=== PATIENT | female | born 1980 | race Caucasian/White ===

== ENCOUNTER 2019-03-10 21:56 | Emergency (ER) | payer OTHER ==
[2019-03-10 22:04] VITALS: TEMP 98.7; BMI 19.3
[2019-03-10] MEDS ORDERED: ACETAMINOPHEN 1000 MG/100 ML VIAL (NON FORMULARY) IVPB ONE (23:22)
--- NOTE | 2019-03-10 23:26 | PDOC ---
Attending Attestation - Resident Resident Name: Elizabeth Mcdonaldana - ED Attending Attestation I have performed the following: I have examined & evaluated the patient, The case was reviewed & discussed with the resident, I agree w/resident's findings & plan - HPI HPI: 03/10/19 23:26 see resident hpi - Physicial Exam PE: 03/11/19 00:20 agree with resident exam - Medical Decision Making 03/11/19 00:21 38-year-old female with left flank pain, currently approximately 7 weeks gestational age Patient provides history of vomiting likely leading to muscle spasm/strain Plan for IV hydration, antiemetics Urinalysis consistent with urinary tract infection, plan for DC on Macrobid
[2019-03-10] MEDS ORDERED: ACETAMINOPHEN INJECTION 100 ML IVPB ONE (23:39)
[2019-03-10 23:54] LABS: BASO % 1.1 % (0-2.0); EOS % 1.6 % (0-4.5); HEMATOCRIT 33.7 % (32.4-45.2); HEMOGLOBIN 10.8 GM/dL (10.7-15.3); LYMPH % 24.3 % (8-40); MCH 25.8 pg (25.7-33.7); MCHC 31.9 g/dl (32.0-36.0); MEAN CELL VOLUME 80.8 fl (80-96); MEAN PLT VOLUME 9.1 fl (7.5-11.1); MONO % 6.4 % (3.8-10.2); NEUT % 66.6 % (42.8-82.8); PLATELET COUNT 286 K/MM3 (134-434); RBC 4.17 M/mm3 (3.60-5.2); RDW 15.7 % (11.6-15.6)
[2019-03-10] MEDS ORDERED: SODIUM CHLORIDE 1,000 ML IV STA (23:58)
--- NOTE | 2019-03-10 23:59 | PDOC ---
History of Present Illness - General Chief Complaint: Pain Stated Complaint: FEELING PAIN Time Seen by Provider: 03/10/19 23:18 History Source: Patient Exam Limitations: No Limitations - History of Present Illness Initial Comments: Pt is a 38 yo F, (1 , 1 miscarriage), @7 weeks , who is presenting with complaints of L-sided back pain since 8am this morning. Pt states she has been vomiting every day since being , and had forceful wretching this morning, followed by "a pulling sensation through her back". Pt did not take any analgesics at home. Pt denies any recent fevers/chills, headache, vision changes, syncope, chest pain, palpitations, SOB, nausea/ vomiting, abdominal pain, vaginal bleeding or discharge, urinary symptoms, diarrhea/constipation, or leg swelling. Allergies: NKDA PCP: None OB: None Social: Pt denies any cigarette, alcohol, or drug use. Pt denies any recent travel or sick contacts. Surgical: no relevant history. Family: no relevant history. No known kidney stones or renal issues. 03/11/19 00:51 Past History - Travel Traveled outside of the country in the last 30 days: No Close contact w/someone who was outside of country & ill: No - Past Medical History Allergies/Adverse Reactions: Allergies Allergy/AdvReac Type Severity Reaction Status Date / Time No Known Allergies Allergy Verified 03/10/19 22:01 Home Medications: Ambulatory Orders Nitrofurantoin Monohyd/M-Cryst [Macrobid -] 100 mg PO BID #14 capsule 03/11/19 Ondansetron [Zofran *Odt*] 4 mg SL BID PRN #10 od.tablet 03/11/19 COPD: No - Immunization History Immunization Up to Date: Yes - Psycho Social/Smoking Cessation Hx Smoking History: Never smoked Hx Alcohol Use: No Drug/Substance Use Hx: No Review of Systems - Review of Systems Able to Perform ROS?: Yes Is the patient limited Persian proficient: No Constitutional: Yes: Weight Stable. No: Chills, Diaphoresis, Fever, Loss of Appetite, Malaise, Weakness HEENTM: No: Recent change in vision, Nose Congestion, Throat Pain, Throat Swelling, Difficulty Swallowing Respiratory: No: Cough, Orthopnea, Shortness of Breath Cardiac (ROS): No: Chest Pain, Edema, Irregular Heart Rate, Lightheadedness, Palpitations, Syncope, Chest Tightness ABD/GI: Yes: Nausea, Vomiting. No: Abdominal Distended, Constipated, Diarrhea, Poor Appetite, Poor Fluid Intake, Abdominal cramping : No: Burning, Dysuria, Frequency, Flank Pain, Hematuria, Pain, Urgency Musculoskeletal: Yes: See HPI, Back Pain. No: Joint Pain, Muscle Pain, Muscle Weakness Integumentary: No: Bruising, Rash Neurological: No: Headache, Weakness, Unsteady Gait, Dizziness Psychiatric: No: Sleep Pattern Change, Change in Appetite Endocrine: No: Increased Urine, Change in Weight Hematologic/Lymphatic: No: Anemia, Blood Clots, Easy Bleeding, Easy Bruising All Other Systems: Reviewed and Negative *Physical Exam - Vital Signs Last Vital Signs Temp Pulse Resp BP Pulse Ox 98.7 F 109 H 18 128/80 99 03/10/19 22:01 03/10/19 22:01 03/10/19 22:01 03/10/19 22:01 03/10/19 22:01 - Physical Exam Comments: Vitals stable, mild tachycardia (HR 100s). Pt in NAD, thin body habitus. Pt alert and oriented x3. 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 No midline spinal tenderness, step-offs, or crepitus. +Reproducible paraspinal TTP over L lower back with mild spasm palpable. Head normocephalic, atraumatic. Eyes PERRLA, EOMI. Oropharynx without erythema or exudates, no LAD b/l. No nasal congestion. Hearing intact. Clear heart sounds, S1/S2, no JVD, b/l pedal edema, or heart murmur. Clear lung sounds, no respiratory distress, wheezes, crackles, or accessory muscle use. No abdominal or CVA tenderness to palpation, no rebound, no guarding. Abdomen soft, non-distended, and with normoactive bowel sounds. Fundal height appropriate for gestational age. Skin without jaundice or rash. 03/11/19 00:53 03/11/19 01:13 ED Treatment Course - LABORATORY CBC & Chemistry Diagram: 03/10/19 23:50 03/10/19 23:50 - ADDITIONAL ORDERS Additional order review: 03/10/19 23:50 RBC 4.17 MCV 80.8 MCHC 31.9 L RDW 15.7 H MPV 9.1 Neutrophils % 66.6 Lymphocytes % 24.3 Monocytes % 6.4 Eosinophils % 1.6 Basophils % 1.1 Medical Decision Making - Medical Decision Making 38 yo F with low back pain likely 2/2 muscular low back strain after vomiting. Will evaluate for TABATHA vs UTI vs electrolyte imbalances. CBC WNL UA with UTI -- providing first dose of macrobid Providing 4 mg SL zofran for nausea, ofirmev, and 1 L IV NS Will send additional zofran and macrobid to pharmacy Pending CMP 03/11/19 01:23 CMP WNL, GFR and Cr WNL Bedside renal US showed no hydro; good heart rate and movement Pt states nausea and pain improved. Pt safe for d/c to home with OB and PCP f/u. Strict return precautions provided with pt understanding. 03/11/19 01:34 Discharge - Discharge Information Problems reviewed: Yes Clinical Impression/Diagnosis: Low back pain Qualifiers: Chronicity: acute Back pain laterality: left Sciatica presence: without sciatica Qualified Code(s): M54.5 - Low back pain Condition: Good Disposition: HOME - Admission No - Additional Discharge Information Prescriptions: Nitrofurantoin Monohyd/M-Cryst [Macrobid -] 100 mg PO BID #14 capsule Ondansetron [Zofran *Odt*] 4 mg SL BID PRN #10 od.tablet PRN Reason: Nausea - Follow up/Referral Referrals: [facility] [place] [Provider Group] Desirae Marino MD [Staff Physician] - Prateek Gómez MD [Staff Physician] - - Patient Discharge Instructions Patient Printed Discharge Instructions: DI for Low Back Pain Additional Instructions: You were seen in the ER today for low back pain. The results of your labs and imaging today showed a urine infection. Please follow-up with your primary care doctor and OB within 1-2 days to discuss your visit and make sure your symptoms have improved. Please return to the ER if you have any worsening pain, development of fevers or chills, loss of consciousness, inability to tolerate food or fluids, or any other concerns. I have sent medications to your pharmacy. Please take these medications as prescribed. You can take tylenol every 6 hours as needed for pain. - Post Discharge Activity
[2019-03-11 00:14] LABS: EPI CELLS 19.1 /HPF (0-5/HPF); HYALINE CASTS 28 /lpf (0-8); URINE APPEARANCE TURBID; URINE BACTERIA 4736.3 /hpf (NEGATIVE); URINE BILIRUBIN NEGATIVE (NEGATIVE); URINE COLOR YELLOW; URINE GLUCOSE (UA) NEGATIVE (NEGATIVE); URINE KETONE TRACE (NEGATIVE); URINE LEUK ESTERASE 1+ (NEGATIVE); URINE NITRITE NEGATIVE (NEGATIVE); URINE PROTEIN TRACE (NEGATIVE); URINE RBC 10 /hpf (0-4); URINE WBC 43 /hpf (0-5)
[2019-03-11] MEDS ORDERED: ONDANSETRON *ODT* 4 MG TABLET SL ONE (00:14)
[2019-03-11] MEDS ORDERED: NITROFURANTOIN MACROCRYSTAL 50 MG CAPSULE (FP) PO SCH (00:15)
[2019-03-11] MEDS ORDERED: ONDANSETRON *ODT* 4 MG TABLET ONE (00:30)
[2019-03-11] MEDS ORDERED: NITROFURANTOIN MACROCRYSTAL 50 MG CAPSULE (FP) ONE (00:30)
[2019-03-11 01:11] LABS: ALK PHOS 73 U/L (45-117); ANION GAP 7 MMOL/L (8-16); BILIRUBIN,TOTAL < 0.1 mg/dL (0.2-1); BLOOD UREA NITROGEN 11.4 mg/dL (7-18); CALCIUM 8.3 mg/dL (8.5-10.1); CHLORIDE 108 mmol/L (98-107); CO2 24 mmol/L (21-32); CREATININE 0.7 mg/dL (0.55-1.3); GLUCOSE,RANDOM 105 mg/dL (74-106); POTASSIUM 3.9 mmol/L (3.5-5.1); SGOT/AST 16 U/L (15-37); SGPT/ALT 13 U/L (13-61); SODIUM 139 mmol/L (136-145); TOT PROT 6.8 g/dl (6.4-8.2)
[2019-03-11 03:24] VITALS: BP 133/85; PULSE 94
== END 2019-03-11 02:20 | disposition home or self-care (01) ==
LOC: JER 21:56
PROC: 3E033NZ Introduction of Analgesics, Hypnotics, Sedatives into Peripheral Vein, Percutaneous Approach (ICD-10-PCS; principal; 2019-03-10)
DX: O26.891 Other specified pregnancy related conditions, first trimester (principal); O23.41 Unspecified infection of urinary tract in pregnancy, first trimester; Z3A.01 Less than 8 weeks gestation of pregnancy
CPT/HCPCS: 36415; 80053; 81003; 84702; 85025; 87086; 96374; 99283-25; J0131; J7030; Q0162

== ENCOUNTER 2019-03-31 18:41 | Emergency (ER) | payer OTHER ==
[2019-03-31 18:47] VITALS: TEMP 98; BMI 19.3
[2019-03-31 20:28] LABS: EPI CELLS >36 /HPF (0-5/HPF); HYALINE CASTS 91 /lpf (0-8); URINE APPEARANCE TURBID; URINE BACTERIA 7774.6 /hpf (NEGATIVE); URINE BILIRUBIN NEGATIVE (NEGATIVE); URINE COLOR YELLOW; URINE GLUCOSE (UA) NEGATIVE (NEGATIVE); URINE KETONE TRACE (NEGATIVE); URINE LEUK ESTERASE 1+ (NEGATIVE); URINE NITRITE NEGATIVE (NEGATIVE); URINE PROTEIN TRACE (NEGATIVE); URINE UROBILINOGEN 0.2 mg/dL (0.2-1.0); URINE WBC 93 /hpf (0-5)
[2019-03-31] MEDS ORDERED: ONDANSETRON *ODT* 4 MG TABLET SL ONE (20:46)
[2019-03-31] MEDS ORDERED: ACETAMINOPHEN 325 MG TABLET (FP) PO ONE (20:46)
--- NOTE | 2019-03-31 20:46 | PDOC ---
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 Pt reported she was seen at [facility] ED recently for the same thing, was given a "pain medicine" and "medicine for nausea" which improved her symptoms. She reported she ran out of the nausea medicine x2 days ago. She denied fever, abdominal pain, pelvic pain, pelvic cramping, vaginal bleeding, vaginal discharge, diarrhea, blood in stool/vomit. Pt reported she is unwilling to have a pelvic examination as "I just had a papsmear done 15 days ago and I do not need to do it again." OBGYN - Aimee ROS General: denied fever, chills, generalized weakness. HEENT: denied sore throat, rhinorrhea, ear pain. Cardiovascular: denied chest pain, palpitations, syncope, diaphoresis. Respiratory: denied shortness of breath, cough, sputum production, hemoptysis. Gastrointestinal: admitted to nausea, vomiting. denied abdominal pain, diarrhea , constipation, blood in stool. Genitourinary: denied dysuria, increased urinary frequency, hematuria, urinary incontinence, flank pain. Back: admitted to back pain. Musculoskeletal: denied joint pain, muscle pain, joint swelling. Neurological: denied headache, dizziness, numbness, tingling, weakness. Integumentary: denied rash, laceration, abrasion. Hematologic/Lymphatic: denied bruising or bleeding. PE Constitutional: Well-nourished, Well-developed, appearing stated age. HEENT: head is normocephalic, atraumatic. EOMI. PERRLA. Neck: supple. Full ROM. Cardiovascular: regular heart rhythm. no murmurs. no pericardial friction rub. Respiratory: clear to auscultation bilaterally. no crackles, rhonchi or wheezing. no stridor. Gastrointestinal: soft, nontender. normal bowel sounds. no rebound, guarding, masses. Back: self reported left sided CVA tenderness. no right sided CVA tenderness. Extremities: peripheral pulses intact. no lower extremity edema. Neurological: CN 2-12 grossly intact. moves all four extremities. Psych: awake, alert, oriented x3. follows commands. answers questions appropriately. Pelvic: pt refused. Past History - Past Medical History Allergies/Adverse Reactions: Allergies Allergy/AdvReac Type Severity Reaction Status Date / Time No Known Allergies Allergy Verified 03/31/19 18:47 Home Medications: Ambulatory Orders Nitrofurantoin Monohyd/M-Cryst [Macrobid -] 100 mg PO BID #14 capsule 03/11/19 Ondansetron [Zofran *Odt*] 4 mg SL BID PRN #10 od.tablet 03/11/19 Cephalexin Monohydrate [Keflex -] 500 mg PO TID #21 capsule 03/31/19 Ondansetron [Zofran Odt -] 4 mg SL TID #12 od.tablet 03/31/19 - Immunization History Immunization Up to Date: Yes - Psycho Social/Smoking Cessation Hx Smoking History: Never smoked Hx Alcohol Use: No Drug/Substance Use Hx: No *Physical Exam - Vital Signs Last Vital Signs Temp Pulse Resp BP Pulse Ox 98 F 113 H 18 111/69 99 03/31/19 18:44 03/31/19 18:44 03/31/19 18:44 03/31/19 18:44 03/31/19 18:44 ED Treatment Course - LABORATORY CBC & Chemistry Diagram: 03/31/19 21:11 03/31/19 21:11 - ADDITIONAL ORDERS Additional order review: Laboratory Results 03/31/19 20:17 Urine Color Yellow Urine Appearance Turbid Urine pH 6.0 Ur Specific [place] 1.026 Urine Protein Trace Urine Glucose (UA) Negative Urine Ketones Trace H Urine Blood 1+ H Urine Nitrite Negative Urine Bilirubin Negative Urine Urobilinogen 0.2 Ur Leukocyte Esterase 1+ H Urine WBC (Auto) 93 Urine Casts (Auto) 91 U Epithel Cells (Auto) >36 Urine Bacteria (Auto) 7774.6 Medical Decision Making - Medical Decision Making 38 year old female with above PMH presented to ED for left sided back pain associated with n/v x1.5 days. Pt was seen at [facility] ED 03/18/19 for similar symptoms, was diagnosed with UTI and prescribed macrobid/zofran and discharged. Initial Vital Signs Temp Pulse Resp BP Pulse Ox 98 F 113 H 18 111/69 99 03/31/19 18:44 03/31/19 18:44 03/31/19 18:44 03/31/19 18:44 03/31/19 18:44 Afebrile. Tachycardic. No tachypnea. No hypotension. No hypoxia on room air. Labs ordered: CBC, CMP, Mag, UA/UC, serum beta quant Imaging ordered: Pelvic US, bilateral renal US Medications ordered: tylenol IV, zofran 4 mg IV once, normal saline bolus 1000 cc once Bedside POCUS of pelvis showed intrauterine with movement, FHR 164, BPD 12 weeks 4 days. Bedside POCUS of bilateral kidneys showed no hydronephrosis, no cysts. 03/31/19 20:56 Urine Test Results Urine Color Yellow 03/31/19 20:17 Urine Appearance Turbid 03/31/19 20:17 Urine pH 6.0 (5.0-8.0) 03/31/19 20:17 Ur Specific [place] 1.026 (1.010-1.035) 03/31/19 20:17 Urine Protein Trace (NEGATIVE) 03/31/19 20:17 Urine Glucose (UA) Negative (NEGATIVE) 03/31/19 20:17 Urine Ketones Trace (NEGATIVE) H 03/31/19 20:17 Urine Blood 1+ (NEGATIVE) H 03/31/19 20:17 Urine Nitrite Negative (NEGATIVE) 03/31/19 20:17 Urine Bilirubin Negative (NEGATIVE) 03/31/19 20:17 Ur Leukocyte Esterase 1+ (NEGATIVE) H 03/31/19 20:17 Positive for UTI. Pt is failing outpt Macrobid treatment. 03/31/19 21:33 CBC WBC 9.1 K/mm3 (4.0-10.0) 03/31/19 21:11 RBC 4.34 M/mm3 (3.60-5.2) 03/31/19 21:11 Hgb 11.4 GM/dL (10.7-15.3) 03/31/19 21:11 Hct 35.4 % (32.4-45.2) 03/31/19 21:11 MCV 81.5 fl (80-96) 03/31/19 21:11 MCH 26.2 pg (25.7-33.7) 03/31/19 21:11 MCHC 32.1 g/dl (32.0-36.0) 03/31/19 21:11 RDW 16.8 % (11.6-15.6) H 03/31/19 21:11 Plt Count 292 K/MM3 (134-434) 03/31/19 21:11 MPV 8.9 fl (7.5-11.1) 03/31/19 21:11 Absolute Neuts (auto) 6.0 K/mm3 (1.5-8.0) 03/31/19 21:11 Neutrophils % 65.7 % (42.8-82.8) 03/31/19 21:11 Lymphocytes % 24.9 % (8-40) 03/31/19 21:11 Monocytes % 7.0 % (3.8-10.2) 03/31/19 21:11 Eosinophils % 2.0 % (0-4.5) 03/31/19 21:11 Basophils % 0.4 % (0-2.0) 03/31/19 21:11 Nucleated RBC % 0 % (0-0) 03/31/19 21:11 No leukocytosis. No anemia. 03/31/19 22:21 CMP Sodium 137 mmol/L (136-145) 03/31/19 21:11 Potassium 3.9 mmol/L (3.5-5.1) 03/31/19 21:11 Chloride 104 mmol/L (98-107) 03/31/19 21:11 Carbon Dioxide 24 mmol/L (21-32) 03/31/19 21:11 Anion Gap 8 MMOL/L (8-16) 03/31/19 21:11 BUN 7.8 mg/dL (7-18) 03/31/19 21:11 Creatinine 0.5 mg/dL (0.55-1.3) L 03/31/19 21:11 Est GFR (CKD-EPI)AfAm 141.30 03/31/19 21:11 Est GFR (CKD-EPI)NonAf 121.92 03/31/19 21:11 Random Glucose 72 mg/dL (74-106) L 03/31/19 21:11 Calcium 8.7 mg/dL (8.5-10.1) 03/31/19 21:11 Magnesium 2.1 mg/dL (1.8-2.4) 03/31/19 21:11 Total Bilirubin 0.2 mg/dL (0.2-1) 03/31/19 21:11 AST 10 U/L (15-37) L 03/31/19 21:11 ALT 12 U/L (13-61) L 03/31/19 21:11 Alkaline Phosphatase 71 U/L (45-117) 03/31/19 21:11 Total Protein 7.3 g/dl (6.4-8.2) 03/31/19 21:11 Albumin 3.2 g/dl (3.4-5.0) L 03/31/19 21:11 Lipase 108 U/L (73-393) 03/31/19 21:11 Beta HCG, Quant 630380.8 mIU/ml 03/31/19 21:11 No electrolyte abnormalities. No TABATHA. No transaminitis. Lipase wnl. Pt reported improvement of symptoms with Zofran and 1L normal saline bolus. Pt recieved first dose Keflex in ED. 03/31/19 23:05 Pt tolerated PO challenge. Pt stable for discharge with prescriptions for Keflex and Zofran. Pt advised to call her OBGYN and make an appt as she has not been evaluated during this by her OBGYN. Pt informed UTI is a risk factor for spontaneous , and to take her antibiotic as instructed. Pt expressed understanding and agreed with plan for care. Discharge - Discharge Information Problems reviewed: Yes Clinical Impression/Diagnosis: UTI (urinary tract infection) Condition: Stable Disposition: HOME - Admission No - Additional Discharge Information Prescriptions: Cephalexin Monohydrate [Keflex -] 500 mg PO TID #21 capsule Ondansetron [Zofran Odt -] 4 mg SL TID #12 od.tablet - Follow up/Referral - Patient Discharge Instructions Patient Printed Discharge Instructions: DI for Urinary Tract Infection (UTI), DI for -- Discomforts and Remedies Additional Instructions: Follow up with your OBGYN within 3 days regarding your Emergency Room visit. Your care is not complete until you follow up. You need to follow up as well to establish care for your . Take the antibiotic I sent to your pharmacy as advised on label. Do not stop early even if you are feeling better. Finish all pills. Take with food to avoid nausea. I have sent an anti-nausea medication to your pharmacy, take as advised on label as needed. Return to the Emergency Department for fever, continuous vomiting, abdominal pain, increasing pain, lightheadedness, passing out, chest pain, shortness of breath, or any other new, worsening or concerning symptoms. Michelet un seguimiento con joe OBGYN dentro de los 3 rush con respecto a joe visita a la jc de emergencias. Joe atencin no estar completa hasta que realice el seguimiento. Karen debe realizar un seguimiento para establecer el cuidado de joe embarazo. [place] el antibitico que envi a joe farmacia donan se indica en la etiqueta. No pare temprano, incluso si se siente mejor. Termina todas las pastillas. Lauren con comida para evitar las nuseas. Envi un medicamento contra las nuseas a joe farmacia, tmelo donna se indica en la etiqueta segn sea necesario. Regrese al departamento de emergencias por fiebre, vmitos continuos, dolor abdominal, aumento del dolor, aturdimiento, desmayo, dolor en el pecho, falta de aliento o cualquier otro sntoma nuevo, que empeore o se relacione. - Post Discharge Activity Work/Back to School Note: Back to Work
[2019-03-31] MEDS ORDERED: SODIUM CHLORIDE 1,000 ML IV STA (20:49)
[2019-03-31] MEDS ORDERED: ACETAMINOPHEN INJECTION 100 ML IVPB ONE (20:51)
[2019-03-31] MEDS ORDERED: ACETAMINOPHEN 1000 MG/100 ML VIAL (NON FORMULARY) IVPB ONE (20:51)
[2019-03-31] MEDS ORDERED: ONDANSETRON 4 MG/2 ML VIAL IVPUSH ONE (20:51)
[2019-03-31] MEDS ORDERED: ONDANSETRON 4 MG/2 ML VIAL ONE (20:52)
[2019-03-31 20:58] LABS: URINE RBC 11.5 /hpf (0-4)
[2019-03-31 21:25] LABS: BASO % 0.4 % (0-2.0); HEMATOCRIT 35.4 % (32.4-45.2); HEMOGLOBIN 11.4 GM/dL (10.7-15.3); LYMPH % 24.9 % (8-40); MCH 26.2 pg (25.7-33.7); MCHC 32.1 g/dl (32.0-36.0); MEAN CELL VOLUME 81.5 fl (80-96); MEAN PLT VOLUME 8.9 fl (7.5-11.1); NEUT % 65.7 % (42.8-82.8); PLATELET COUNT 292 K/MM3 (134-434); RBC 4.34 M/mm3 (3.60-5.2); RDW 16.8 % (11.6-15.6); WHITE BLOOD COUNT 9.1 K/mm3 (4.0-10.0)
[2019-03-31] MEDS ORDERED: CEPHALEXIN MONOHYDRATE 500 MG CAPSULE (UD) PO ONE (21:34)
[2019-03-31 21:38] LABS: INR 0.9 (0.83-1.09); PROTHROMBIN TIME (PATIENT) 10.6 SEC (9.7-13.0)
[2019-03-31 21:40] LABS: ACTIVATED PTT 31.6 SECONDS (25.2-36.5)
--- NOTE | 2019-03-31 21:47 | PDOC ---
Attending Attestation - Resident Resident Name: Love Reyes - ED Attending Attestation I have performed the following: I have examined & evaluated the patient, The case was reviewed & discussed with the resident, I agree w/resident's findings & plan, Exceptions are as noted - HPI HPI: 03/31/19 21:45 38-year-old female currently 12 weeks here today complaining of left- sided flank pain. Patient was recently treated for UTI with Macrobid states that her flank pain developed few days ago describes as intermittent and it sometimes constant as a dull achy pain. No known history of renal colic. Denies any fevers or chills does have nausea and vomiting today states that she has been on Zofran for nausea and vomiting throughout the has not seen her OB yet for care denies any loss of fluid normal hematuria no vaginal bleeding. - Physicial Exam PE: 03/31/19 21:46 Awake alert no acute distress lungs are clear bilaterally heart is regular without murmurs rubs or gallops abdomen is soft and nontender no CVA tenderness extremities are warm and well-perfused skin is warm and dry patient is A&O x3 - Medical Decision Making 03/31/19 21:46 38-year-old female currently 12 weeks recent UTI here today complaining of left flank pain. Differential includes renal colic pyelonephritis discomfort of . Plan UA urine culture basic labs focused ED ultrasound renal and OB. Focused ED ultrasound OB was performed did show a intrauterine approximately 12 weeks and 4 days by biparietal diameter. movement was noted heart rate was 162 bpm. Focused ED renal ultrasound was performed no hydro-is appreciated kidneys are of normal size impression normal kidneys basic labs are sent and are pending
[2019-03-31] MEDS ORDERED: CEPHALEXIN MONOHYDRATE 500 MG CAPSULE (UD) ONE (21:53)
[2019-03-31 22:15] LABS: ALBUMIN 3.2 g/dl (3.4-5.0); BILIRUBIN,TOTAL 0.2 mg/dL (0.2-1); BLOOD UREA NITROGEN 7.8 mg/dL (7-18); CALCIUM 8.7 mg/dL (8.5-10.1); CREATININE 0.5 mg/dL (0.55-1.3); MAGNESIUM 2.1 mg/dL (1.8-2.4); POTASSIUM 3.9 mmol/L (3.5-5.1); TOT PROT 7.3 g/dl (6.4-8.2)
[2019-03-31 23:58] VITALS: BP 120/81; PULSE 81
== END 2019-03-31 23:30 | disposition home or self-care (01) ==
LOC: JER 18:41
PROC: 3E033NZ Introduction of Analgesics, Hypnotics, Sedatives into Peripheral Vein, Percutaneous Approach (ICD-10-PCS; principal; 2019-03-31)
PROC: 3E033GC Introduction of Other Therapeutic Substance into Peripheral Vein, Percutaneous Approach (ICD-10-PCS; 2019-03-31)
PROC: 3E0337Z Introduction of Electrolytic and Water Balance Substance into Peripheral Vein, Percutaneous Approach (ICD-10-PCS; 2019-03-31)
PROC: BT43ZZZ Ultrasonography of Bilateral Kidneys (ICD-10-PCS; 2019-03-31)
PROC: BY49ZZZ Ultrasonography of First Trimester, Single Fetus (ICD-10-PCS; 2019-03-31)
DX: O26.891 Other specified pregnancy related conditions, first trimester (principal); O23.41 Unspecified infection of urinary tract in pregnancy, first trimester; Z3A.12 12 weeks gestation of pregnancy
CPT/HCPCS: 36415; 76775; 76801-TC; 76815; 80053; 81003; 83690; 83735; 84702; 85025; 85610; 85730; 86850; 86900; 86901; 87077; 87086; 96361; 96374; 96375; 99283-25; J0131; J7030